=== PATIENT | female | born 1995 | race Caucasian/White ===

== ENCOUNTER 2021-07-17 00:19 | Inpatient (IN) | payer SELFPAY ==
[~2021-07-17] VITALS: Ht 162.6 cm; Wt 72.6 kg
[2021-07-17] MEDS ORDERED: PROMETHAZINE 25 MG/ML VIAL IVP SCH (00:25)
[2021-07-17] MEDS ORDERED: PROMETHAZINE 25 MG/ML VIAL IVP PRN (00:25)
[2021-07-17] MEDS ORDERED: METHYLERGONOVINE 0.2 MG/ML AMP IM PRN ×2 (00:25→04:15)
[2021-07-17] MEDS ORDERED: AMPICILLIN 2,000 MG in NACL 0.9% MINI-BAG PLUS 100 ML IV SCH (00:25)
[2021-07-17] MEDS ORDERED: CARBOPROST 250 MCG/ML AMP IM PRN (00:25)
[2021-07-17] MEDS ORDERED: NALBUPHINE 10 MG/ML AMP IVP SCH (00:25)
[2021-07-17] MEDS ORDERED: LACTATED RINGERS 1,000 ML IV SCH (00:25)
[2021-07-17] MEDS ORDERED: MORPHINE SULFATE 5 MG/ML VIAL IVP PRN (00:45)
[2021-07-17] MEDS ORDERED: AMPICILLIN 2,000 MG VIAL ONE (00:48)
[2021-07-17] MEDS ORDERED: MORPHINE SULFATE 10 MG/ML VIAL ONE (01:02)
[2021-07-17 01:42] LABS: BASOPHILS # (AUTO) 0.1 K/uL (0.00-0.22); BASOPHILS % (AUTO) 0.3 % (0.0-2.0); HEMATOCRIT 37.4 % (36-48); HEMOGLOBIN 12.5 g/dL (12.0-16.0); LYMPHOCYTES # (AUTO) 0.8 K/uL (2.5-16.5); LYMPHOCYTES % (AUTO) 4.7 % (20.5-51.1); MEAN CORPUSCULAR HEMOGLOBIN 30 pg (27-31); MEAN CORPUSCULAR HGB CONC 33 g/dL (33-37); MONOCYTES # (AUTO) 0.6 K/uL (0.8-1.0); MONOCYTES % (AUTO) 3.4 % (1.7-9.3); NEUTROPHILS # (AUTO) 15.1 K/uL (1.8-7.7); PLATELET COUNT (AUTO) 169 K/uL (140-450); RED CELL DISTRIBUTION WIDTH 13.6 % (11.6-13.7); WHITE BLOOD COUNT (AUTO) 16.5 K/uL (4.8-10.8)
[2021-07-17 01:58] LABS: ALBUMIN 2.8 g/dL (3.4-5.0); ANION GAP 16.8 (8-16); CARBON DIOXIDE 19.7 mmol/L (21-32); CREATININE 0.5 mg/dL (0.6-1.3); POTASSIUM 3.5 mmol/L (3.5-5.1); TOTAL BILIRUBIN 1.4 mg/dL (0.0-1.0)
[2021-07-17 02:08] LABS: NEUTROPHILS % (AUTO) 91.6 % (42.2-75.2)
[2021-07-17] MEDS ORDERED: OXYTOCIN 20 UNITS in LACTATED RINGERS 1,000 ML IV SCH (02:30)
[2021-07-17] MEDS ORDERED: OXYTOCIN 20 UNITS/LR PREMIX 1,000 ML IV ONE (03:28)
[2021-07-17] MEDS ORDERED: AMPICILLIN 1,000 MG VIAL ONE (03:41)
[2021-07-17] MEDS ORDERED: LIDOCAINE 1% 500 MG/50 ML VIAL ONE (03:45)
[2021-07-17] MEDS ORDERED: NALOXONE 0.4 MG/ML VIAL ONE (03:57)
[2021-07-17] MEDS ORDERED: AMPICILLIN 1,000 MG in NACL 0.9% MINI-BAG PLUS 50 ML IV SCH (04:00)
[2021-07-17] MEDS ORDERED: METHYLERGONOVINE 0.2 MG TAB PO PRN (04:15)
[2021-07-17] MEDS ORDERED: TEMAZEPAM 15 MG CAP PO PRN (04:15)
[2021-07-17] MEDS ORDERED: BENZOCAINE/MENTHOL 20%-0.5% 60 GM CAN TP PRN (04:15)
[2021-07-17] MEDS ORDERED: OXYTOCIN 10 UNITS/ML VIAL IM PRN (04:15)
[2021-07-17] MEDS ORDERED: IBUPROFEN 800 MG TAB PO PRN (04:15)
[2021-07-17] MEDS ORDERED: oxyCODONE/APAP 5/325 MG 1 TAB TAB PO PRN ×2 (04:15)
--- NOTE | 2021-07-17 09:36 | NUR ---
PATIENT HAS BEEN SCREENED AND CATEGORIZED LOW NUTRITION RISK. PATIENT WILL BE SEEN WITHIN 7 DAYS OF ADMISSION. 07/23/[address]
[2021-07-17] MEDS ORDERED: DOCUSATE SOD/SENNA 50/8.6 MG 1 TAB PO SCH (21:00)
== END 2021-07-17 21:40 | disposition home or self-care (01) | DRG 807 ==
LOC: MLD 00:19 → MFCC 07:55
PROVIDERS: ADMIT Obstetrics & Gynecology; ATTEND Obstetrics & Gynecology
PROC: 10D07Z6 Extraction of Products of Conception, Vacuum, Via Natural or Artificial Opening (ICD-10-PCS; principal; 2021-07-17)
PROC: 0W8NXZZ Division of Female Perineum, External Approach (ICD-10-PCS; 2021-07-17)
DX: O76 Abnormality in fetal heart rate and rhythm complicating labor and delivery (principal); Z37.0 Single live birth; Z3A.37 37 weeks gestation of pregnancy; Z20.822 Contact with and (suspected) exposure to COVID-19
CPT/HCPCS: 36415; 59409; 80053; 85025; 86592; 86886; 86900; 86901; 87340; J0290; J2001; J2210; J2270; J2310; J2590